=== PATIENT | female | born 1975 | race Caucasian/White ===

== ENCOUNTER → 2018-02-03 | Outpatient (CLI) | payer BC ==
--- NOTE | 2018-02-04 08:44 | MM ---
Reason for exam: clinical finding. Last mammogram was performed 2 years and 8 months ago. History: Patient had first child at age 33. Indicated problem(s): palpable abnormality in the right breast. Physical Findings: Nurse did not find any significant physical abnormalities on exam. MG Diagnostic Mammo w CAD ALVA Bilateral CC and MLO view(s) were taken. Prior study comparison: May 23, 2015, right breast MG diagnostic mammo RT w CAD. September 05, 2014, bilateral MG screening mammo w CAD. The breast tissue is heterogeneously dense. This may lower the sensitivity of mammography. Asymmetric breast tissue right axilla, stable. There is no discrete abnormality. ASSESSMENT: Incomplete: need additional imaging evaluation, BI-RAD 0 RECOMMENDATION: Ultrasound of the right breast. (axilla palpables/fullness)
--- NOTE | 2018-02-04 08:49 | USB ---
Reason for exam: additional evaluation requested from abnormal screening. History: Patient had first child at age 33. US Breast Limited RT Right breast ultrasound demonstrates no cystic or solid lesion seen. These results were verbally communicated with the patient and result sheet given to the patient on 02/03/18. ASSESSMENT: Negative, BI-RAD 1 RECOMMENDATION: Routine screening mammogram of both breasts in 1 year. Manage on a clinical basis with regard to right axillary fullness.
== END | disposition home or self-care (01) ==
LOC: RADMAMWWP 14:19
PROVIDERS: ATTEND Family Medicine
DX: N63.11 Unspecified lump in the right breast, upper outer quadrant (principal); R22.2 Localized swelling, mass and lump, trunk
CPT/HCPCS: 77066

== ENCOUNTER → 2019-04-17 | Outpatient (CLI) | payer BC ==
--- NOTE | 2019-04-17 11:25 | XR ---
EXAMINATION TYPE: XR shoulder complete RT DATE OF EXAM: 04/17/2019 CLINICAL HISTORY: Right superior shoulder pain for 3 weeks with no known injury TECHNIQUE: Three views of the right shoulder are obtained. COMPARISON: None. FINDINGS: There is no acute fracture/dislocation evident in the right shoulder. The acromioclavicul ar and glenohumeral joint spaces are maintained however there are small marginal osteophytes of the a cromioclavicular joint. The visualized ribs are intact and unremarkable. IMPRESSION: There is no acute fracture or dislocation in the right shoulder. Minimal acromioclavicul ar arthropathy.
== END | disposition home or self-care (01) ==
LOC: RADXRYALE 09:52
PROVIDERS: ATTEND Physician Assistant Medical
DX: M19.011 Primary osteoarthritis, right shoulder (principal)

== ENCOUNTER → 2019-09-15 | Outpatient (CLI) | payer BC ==
--- NOTE | 2019-09-15 11:57 | XR ---
EXAMINATION TYPE: XR chest 2V DATE OF EXAM: 09/15/2019 COMPARISON: NONE HISTORY: Chest pain TECHNIQUE: Frontal and lateral views of the chest are obtained. FINDINGS: There is no focal air space opacity. No evidence for pneumothorax. No pleural effusion. The cardiac silhouette size is within normal limits. The osseous structures are grossly intact. IMPRESSION: 1. No acute cardiopulmonary process.
== END | disposition home or self-care (01) ==
LOC: RADXRYALE 11:01
PROVIDERS: ATTEND Family Medicine
DX: R06.02 Shortness of breath (principal); R07.89 Other chest pain
CPT/HCPCS: 71046

== ENCOUNTER → 2019-10-13 | Outpatient (CLI) | payer BC ==
--- NOTE | 2019-10-13 12:00 | ECHOF ---
Referral Reason:[id number] chest pain MEASUREMENTS -------- HEIGHT: 165.1 cm WEIGHT: 89.8 kg BP: RVIDd: 2.9 cm (< 3.3) IVSd: 1.1 cm (0.6 - 1.1) LVIDd: 4.1 cm (3.9 - 5.3) LVPWd: 1.0 cm (0.6 - 1.1) IVSs: 1.5 cm LVIDs: 2.7 cm LVPWs: 1.5 cm LA Diam: 2.8 cm (2.7 - 3.8) LAESV Index (A-L): 20.93 ml/m Ao Diam: 3.0 cm (2.0 - 3.7) AV Cusp: 2.2 cm (1.5 - 2.6) MV EXCURSION: 18.894 mm (> 18.000) MV EF SLOPE: 105 mm/s (70 - 150) EPSS: 0.4 cm MV E [place]: 0.76 m/s MV DecT: 155 ms MV A [place]: 0.49 m/s MV E/A Ratio: 1.55 TAPSE: 21.08 mm FINDINGS -------- Sinus rhythm. This was a technically adequate study. The left ventricular size is normal. There is borderline concentric left ventricular hypertrophy. Overall left ventricular systolic function is normal with, an EF between 60 - 65 %. The right ventricle is normal in size. Normal LA size by volume 22+/-6 ml/m2. The right atrium is normal in size. Interatrial and interventricular septum intact. The aortic valve is trileaflet and appears structurally normal. The mitral valve is normal. The tricuspid valve appears structurally normal. Trace/mild (physiologic) pulmonic regurgitation. The aortic root size is normal. Normal inferior vena cava with normal inspiratory collapse consistent with estimated right atrial pre ssure of 5 mmHg. There is no pericardial effusion. CONCLUSIONS -------- 1. Sinus rhythm. 2. This was a technically adequate study. 3. The left ventricular size is normal. 4. There is borderline concentric left ventricular hypertrophy. 5. Overall left ventricular systolic function is normal with, an EF between 60 - 65 %. 6. The right ventricle is normal in size. 7. Normal LA size by volume 22+/-6 ml/m2. 8. The right atrium is normal in size. 9. Interatrial and interventricular septum intact. 10. The aortic valve is trileaflet and appears structurally normal. 11. The mitral valve is normal. 12. The tricuspid valve appears structurally normal. 13. Trace/mild (physiologic) pulmonic regurgitation. 14. The aortic root size is normal. 15. Normal inferior vena cava with normal inspiratory collapse consistent with estimated right atrial pressure of 5 mmHg. 16. There is no pericardial effusion. [employer]: Katelynn Thomas RDCS
--- NOTE | 2019-10-13 13:30 | EST ---
EXERCISE STRESS DATE OF SERVICE: 10/13/2019 AGE: 44 SEX: Female HT: 5'5-/2" WT: 198 pounds PROTOCOL: Lasha STAGE: III DURATION OF EXERCISE: 9 minutes HEART RATE REST: 73 BLOOD PRESSURE REST: 129/82 MAXIMUM HEART RATE ACHIEVED: 165 MAXIMUM BLOOD PRESSURE: 198/90 85% MPHR: 148 100% MPHR: 174 METS: 11.7 INDICATIONS: Chest pain. CLINICAL INFORMATION: Heart rate 73, pressure is 129/82 mmHg. Baseline EKG showed sinus rhythm. The patient exercised on the treadmill according to Lasha protocol for a total of 9 minutes and achieved 11.7 METs. Max heart rate was 198/90 mmHg. Clinically the patient did not have no symptoms of chest pain or chest discomfort. The EKG did not show any significant ST or T-wave abnormalities concerning for ischemia. CONCLUSION: 1. Excellent exercise tolerance. 2. Normal EKG in response to exercise. 3. Essentially normal exercise treadmill stress test for the patient. MMODL / IJN: [id number] /
== END | disposition home or self-care (01) ==
LOC: RADNMMAIN 08:34
PROVIDERS: ATTEND Family Medicine
DX: I37.1 Nonrheumatic pulmonary valve insufficiency (principal); I51.7 Cardiomegaly
CPT/HCPCS: 93017; 93306

== ENCOUNTER → 2019-12-28 | Outpatient (CLI) | payer BC ==
[2019-12-28 09:34] LABS: Basophils % (A) 1 %; Eosinophils # (A) 0.5 k/uL (0-0.7); Eosinophils % (A) 8 %; HCT 38.4 % (34.0-46.0); HGB 12.3 gm/dL (11.4-16.0); Lymphocytes # (A) 1.7 k/uL (1.0-4.8); Lymphocytes % (A) 30 %; MCH 28.1 pg (25.0-35.0); MCHC 32.1 g/dL (31.0-37.0); MCV 87.6 fL (80.0-100.0); Monocytes # (A) 0.3 k/uL (0-1.0); Monocytes % (A) 5 %; Neutrophils # (A) 2.9 k/uL (1.3-7.7); Neutrophils % (A) 53 %; Platelet Count 312 k/uL (150-450); RBC 4.39 m/uL (3.80-5.40); RDW 14.9 % (11.5-15.5); WBC 5.5 k/uL (3.8-10.6)
== END | disposition home or self-care (01) ==
LOC: LABWHC1 08:24
PROVIDERS: ATTEND Obstetrics & Gynecology
DX: Z01.812 Encounter for preprocedural laboratory examination (principal); D64.9 Anemia, unspecified; N93.8 Other specified abnormal uterine and vaginal bleeding
CPT/HCPCS: 36415; 85025

== ENCOUNTER 2020-01-02 07:58 | Day surgery (SDC) | payer BC ==
[2019-12-28 16:13] VITALS: BMI 32.4
[~2020-01-02 07:58] MED LIST: DEXAMETHASONE SOD PHOSPHATE 10 MG/ML 1 ML VIAL IV ONE; HYDROmorphone 0.5 MG/0.5 ML SYRINGE IVP PRN; LACTATED RINGERS 1,000 ML IV SCH; LIDOCAINE 1% (10MG/ML) FOR IV START INTRADERMA PRN; MIDAZOLAM 2 MG/2 ML VIAL IV PRN; ONDANSETRON 4 MG/2 ML VIAL IVP ONE; Pre Op ABX Message 1 EACH MISC MISCELLANE ONE; fentaNYL (PF) 50 MCG/ML 2 ML AMP IV PRN
[2020-01-02 08:20] VITALS: TEMP 97.3
[2020-01-02] MEDS ORDERED: fentaNYL (PF) 50 MCG/ML 2 ML AMP ONE (09:13)
[2020-01-02] MEDS ORDERED: LIDOCAINE 1% INJ 10MG/ML (20 ML MDV) ONE (09:13)
[2020-01-02] MEDS ORDERED: KETOROLAC 30 MG/ML 1 ML VIAL ONE (09:13)
[2020-01-02] MEDS ORDERED: PROPOFOL 10 MG/ML 20 ML VIAL IV ONE (09:13)
[2020-01-02] MEDS ORDERED: MIDAZOLAM 2 MG/2 ML VIAL ONE (09:13)
[2020-01-02] MEDS ORDERED: GLYCOPYRROLATE 0.2 MG/ML 2 ML VIAL ONE (09:13)
[2020-01-02] MEDS ORDERED: SIMETHICONE 80 MG CHEWABLE PO PRN (09:50)
[2020-01-02] MEDS ORDERED: KETOROLAC 30 MG/ML 1 ML VIAL IVP PRN (09:50)
[2020-01-02] MEDS ORDERED: diphenhydrAMINE 50 MG/ML 1 ML VIAL IVP PRN (09:50)
[2020-01-02] MEDS ORDERED: IBUPROFEN 600 MG TAB PO PRN (09:50)
[2020-01-02] MEDS ORDERED: METOCLOPRAMIDE 5 MG/ML 2 ML VIAL IVP PRN (09:50)
[2020-01-02] MEDS ORDERED: ONDANSETRON 4 MG/2 ML VIAL IVP PRN (09:50)
--- NOTE | 2020-01-02 09:58 | P.OP ---
Date of Procedure: 01/02/20 Preoperative Diagnosis: #1. Dysfunctional uterine bleeding #2. Menorrhagia #3. Anemia Postoperative Diagnosis: Same Procedure(s) Performed: #1. Diagnostic hysteroscopy #2. NovaSure endometrial ablation Anesthesia: other (Gen. by LMA) Surgeon: Rosas De Anda Estimated Blood Loss (ml): 5 IV fluids (ml): 400 Urine output (ml): 20 Pathology: none sent Condition: stable Disposition: PACU Operative Findings: Preoperative pelvic examination demonstrated a 5 week midplane mobile normal shaped uterus with normal adnexa bilaterally. Intraoperatively, the uterus sounded to 9 cm while the cervix was approximately 3-1/2 cm in length. The hysteroscope was able to identify both tubal ostial regions. There was some mildly shaggy endometrium in the upper portion of the fundus. The settings for the NovaSure tool where a length of 5.5 cm, a width of 4.8 cm for total power 148 W. After total run time of 65 seconds, the base unit read "procedure complete." 1 NovaSure tool was used and set aside as it could not pass the cavity check which was passed very simply using a second tool. The postprocedural result appeared to be excellent. The patient is a poor candidate for vaginal hysterectomy. Description of Procedure: The patient was prepped and draped in usual fashion after general anesthesia was administered by the anesthesiologist. A weighted speculum was placed and the bladder draining approximately 20 mL of clear rosi urine. The anterior lip of the cervix was grasped with a single-tooth tenaculum and the cervix and uterus sounded to 3.5 cm and 9 cm respectively. Serial dilation was carried out to admit the diagnostic hysteroscope which was placed into the antral cavity and hysteroscopy carried out with the findings as noted above. There was some shaggy endometrium in the fundal region of the uterus and the bilateral tubal ostial regions were seen. There was no other apparent pathology. The scope was set aside and the NovaSure tool placed to the fundus of the uterus, opened, and seated well. The settings for the tool were as noted above, a length of 5.5 cm, a width of 4.8 cm for total power of 145 seconds. Initial attempts to pass the cavity check were unsuccessful and the first 2 was replaced the second 2 with the settings as noted above. The cavity check was then passed without difficulty. The tool was armed and the run was started. After 65 seconds of run time, the base unit disengaged and red "procedure complete." The tool was closed, removed, and discarded. The diagnostic scope was replaced within the uterine cavity and the findings appear to be excellent as noted above. All instrumentation was then removed from the patient. There was no ongoing bleeding either from the cervix or from the tenaculum sites. Estimated blood loss for the entire case was approximate 5 mL. There were no complications. All sponge, instrument, and needle counts were correct. The patient tolerated the procedure well and proceeded to the recovery room in stable condition.
[2020-01-02] MEDS ORDERED: LACTATED RINGERS 1,000 ML IV SCH (10:00)
[2020-01-02 10:59] VITALS: RESP 16
[2020-01-02 11:22] VITALS: BP 123/82; PULSE 62
== END 2020-01-02 11:37 | disposition home or self-care (01) ==
LOC: OR 07:58
PROVIDERS: ATTEND Obstetrics & Gynecology
DX: N92.0 Excessive and frequent menstruation with regular cycle (principal); N93.8 Other specified abnormal uterine and vaginal bleeding; D64.9 Anemia, unspecified; E03.9 Hypothyroidism, unspecified; Z88.5 Allergy status to narcotic agent; Z79.890 Hormone replacement therapy; Z90.49 Acquired absence of other specified parts of digestive tract; Z98.51 Tubal ligation status; Z98.890 Other specified postprocedural states; Z80.1 Family history of malignant neoplasm of trachea, bronchus and lung; Z80.8 Family history of malignant neoplasm of other organs or systems
CPT/HCPCS: 81025; 58563; J2250; J1100; J2405; J2001; J3010; J1885; J2704

== ENCOUNTER → 2022-05-19 | Outpatient (CLI) | payer BC ==
[2022-05-19 13:30] VITALS: BP 116/82; PULSE 57; RESP 17; TEMP 98.2
--- NOTE | 2022-05-19 14:31 | P.HPOB ---
History of Present Illness H&P Date: 05/19/22 Chief Complaint: The patient is here for her routine gynecologic exam. This is a 46-year-old with an LMP of 2019. The patient is here to establish with this office. It has been about 2 years since her last pelvic exam. She has been amenorrheic since her endometrial ablation done in 2019. The ablation was for dysfunctional uterine bleeding. She denies any significant hot flashes, but has noticed some mood changes. She is without gynecologic complaints. She is status post tubal ligation. Review of Systems She has gained about 20 pounds over the past 2 years and she attributes this to the Covid pandemic. She denies respiratory, cardiac, or GI problems. Past Medical History Past Medical History: No Reported History, Thyroid Disorder Additional Past Medical History / Comment(s): Hypothyroidism. 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 History of incompetent cervix with several second trimester miscarriages. History of Any Multi-Drug Resistant Organisms: None Reported Additional Past Surgical History / Comment(s): prateek breast reduction 2018. Cervical cerclage 2007. D&C for retained placenta. Past Anesthesia/Blood Transfusion Reactions: No Reported Reaction Past Psychological History: No Psychological Hx Reported (She denies current depression.) Smoking Status: Former smoker Past Alcohol Use History: Occasional (0-3 per month) Additional Past Alcohol Use History / Comment(s): Quit smoking cigarettes in her 20s. Past Drug Use History: None Reported Additional History: She has been since 2002. 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 - Past Family History Brother(s) Family Medical History: Cancer Additional Family Medical History / Comment(s): thyroid cancer Father Family Medical History: Cancer Additional Family Medical History / Comment(s): of multiple myeloma. Paternal grandmother and paternal uncle had lung cancer. Mother Family Medical History: Thyroid Disorder Additional Family Medical History / Comment(s): Hypothyroidism. Maternal grandfather had hemochromatosis. Medications and Allergies Home Medications Medication Instructions Recorded Confirmed Type Levothyroxine Sodium [Synthroid] 100 mcg PO DAILY 02/11/18 05/19/22 History Allergies Allergy/AdvReac Type Severity Reaction Status Date / Time hydromorphone [From Dilaudid] Allergy Swelling Verified 05/19/22 13:27 talc Allergy Swelling Verified 05/19/22 13:27 telk powder Allergy Swelling Uncoded 05/19/22 13:27 Exam Vital Signs Temp Pulse Resp BP Pulse Ox 05/19/22 13:27 98.2 F 57 L 17 116/82 97 Intake and Output 05/18/22 05/19/22 05/19/22 22:59 06:59 14:59 Other: Weight 91.626 kg Height 5 feet 5 inches, weight 202 pounds, BMI 33.6. This is a well-developed well-nourished white female who is alert and oriented times 3 in no acute distress. HEENT: Within normal limits. NECK: Supple without mass or thyromegaly. CHEST AND LUNGS: Clear to auscultation. HEART: Regular rate and rhythm. BREASTS: Are without mass or discharge. AXILLARY EXAM: Negative for adenopathy. BACK: Negative for CVA tenderness. ABDOMEN: Soft, nontender, without palpable masses. PELVIC EXAM: Normal external genitalia. Cervix and vagina appear normal. There is no unusual discharge. There is no evidence of prolapse. The uterus is midposition, nongravid size and nontender. There are no palpable adnexal masses or tenderness. RECTAL EXAM: negative for mass or tenderness and is negative for occult blood. EXTREMITIES: Nontender. IMPRESSION: 1. 46-year-old female who is status post tubal ligation, with amenorrhea following her endometrial ablation in 2019. 2. Normal gynecologic exam. PLAN: 1. Pap smear cotest was performed. 2. Self breast awareness was discussed with the patient. We have also discussed symptoms associated with inflammatory breast cancer. 3. Screening mammogram is due and the order slip was given to the patient for this. 4. Osteoporosis prevention was discussed. I have stressed the importance of adequate calcium, vitamin D and regular exercise. Recommended amounts of calcium and vitamin D were also discussed. 5. I have recommended that she look into getting a Covid vaccination since she has not had one. She will consider this. 6. She was advised to return in one year for her annual well woman exam.
== END ==
LOC: WWCWWP 13:06
PROVIDERS: ATTEND Obstetrics & Gynecology
DX: Z01.419 Encounter for gynecological examination (general) (routine) without abnormal findings (principal); E03.9 Hypothyroidism, unspecified; Z79.890 Hormone replacement therapy; Z87.891 Personal history of nicotine dependence; Z98.51 Tubal ligation status; Z88.5 Allergy status to narcotic agent; Z91.048 Other nonmedicinal substance allergy status

== ENCOUNTER → 2022-06-16 | Outpatient (CLI) | payer BC ==
[2022-06-16 08:11] VITALS: BP 122/82; PULSE 60; RESP 17; TEMP 97.8
--- NOTE | 2022-06-16 09:02 | P.PN ---
Progress Note - Text Progress Note Date: 06/16/22 Chief Complaint: Heavy vaginal bleeding for 2 days starting on 06/13/2022. HPI: This is a 46-year-old with an LNMP of 2019. The patient is status post endometrial ablation in 2019 for her hypermenorrhea. She had been amenorrheic following the ablation until a few days ago. On 06/12/2022, she developed a right pelvic pain which felt like a terrible cramp. The cramping pain was fairly constant. The following day she developed heavier vaginal bleeding and she noticed this when she was going to the bathroom. It was not continuously heavy, but mostly noticed when she went to the bathroom. She states it was menstrual period like bleeding at those times. Yesterday, the pain and the bleeding decreased. Today the bleeding has been minimal and she is not experiencing any pain. She is status post tubal ligation. ROS: She denies respiratory, cardiac, or GI problems. PE: Blood pressure: 122/82, Height: 5 feet 5 inches, Weight: 203 pounds, Temperature: 97.8, Pulse: 60. Pulse oximeter 100%. This is a well developed, well nourished, white female who is alert and orientedx3, in no acute distress. Abdomen: Soft, nontender, without palpable masses. Pelvic exam: There is a small amount of menstrual type blood in the vagina. The cervix appears multiparous and normal. There is no cervical motion tenderness. The uterus is mid position, multiparous, nongravid size, and nontender. There are no palpable adnexal masses or tenderness. See the procedure note for details on the endometrial biopsy. Impression: 1. 46-year-old female who is status post tubal ligation, with abnormal uterine bleeding following 2 years of amenorrhea after her endometrial ablation in 2019. 2. Right pelvic pain which seemed to be associated with the heavy vaginal bleeding. Differential diagnosis will include ruptured ovarian cyst, hemorrhagic ovarian cyst, or uterine cramping. Plan: 1. Endometrial biopsy was performed. We will await the pathology report. If this is benign and she continues to not have more bleeding or pain, conservative management. If cancerous or precancerous changes are found on the endometrial biopsy, or if she is having recurrent symptoms, consider referral for further evaluation and possible hysterectomy. If endometrial hyperplasia without atypia or benign recurrent bleeding, consider cyclic progestin therapy. 2. The patient was instructed to call she's has any questions or problems. Time spent with the patient: 30 minutes
--- NOTE | 2022-06-16 09:07 | P.PCN ---
Date of Procedure: 06/16/22 Preoperative Diagnosis: Abnormal uterine bleeding Postoperative Diagnosis: Abnormal uterine bleeding Procedure(s) Performed: Endometrial biopsy Anesthesia: none Surgeon: Tyler Canela Estimated Blood Loss (ml): 0 Pathology: other (Endometrial tissue) Condition: stable Disposition: same day Indications for Procedure: This was a 46-year-old female who is status post tubal ligation and endometrial ablation, who was amenorrheic since her endometrial ablation in 2019. The patient developed right pelvic cramping and heavy vaginal bleeding for 2 days. The bleeding started on 06/13/2022. Operative Findings: The uterus was multiparous in size and there are no palpable adnexal masses or tenderness. The uterus sounded to 8 cm. Description of Procedure: We have discussed the procedure including possible risks and complications including bleeding, infection, uterine perforation, and damage to surrounding structures. All of her questions were answered. Please see the progress note from today for additional details. The patient was placed in the lithotomy position. Bimanual examination was performed. The uterus is multiparous, nongravid size and nontender. There are no palpable adnexal masses or tenderness. The speculum was inserted into the vagina. The cervix and vagina were prepped with Betadine solution. An Allis clamp was used to to grasp the anterior lip of the cervix. A 3 mm endometrial biopsy instrument was inserted to the fundus without difficulty. Uterus sounded to 8 cm. Negative pressure was applied and a [id number] rotating motion was used. A moderate amount of tissue was obtained and sent for pathological examination. The instruments were removed. The patient tolerated the procedure well. There were no complications. The post procedure blood pressure was 153/87. The patient was instructed to call if she has problems including heavy vaginal bleeding, unusual pain, fever, or problems.
--- NOTE | 2022-06-18 14:40 | MM ---
Reason for Exam: Screening (asymptomatic). Last mammogram was performed 1 year(s) and 8 month(s) ago. Patient History: Menarche at age 11. First Full-Term at age 33. Late child-bearing (after 30). Risk Values: Celina 5 year model risk: 1.3%. NCI Lifetime model risk: 12.5%. Prior Study Comparison: 09/05/2014 Bilateral Screening Mammogram, [facility]. 05/23/2015 Right Diagnostic Mammogram, [facility]. 02/03/2018 Bilateral Diagnostic Mammogram, [facility]. 10/03/2020 Bilateral MG 3D screening mammo w/cad, [facility]. Tissue Density: There are scattered fibroglandular densities. Findings: Analyzed By CAD. There is no suspicious group of microcalcifications or new suspicious mass in either breast. Overall Assessment: Negative, BI-RAD 1 Management: Screening Mammogram of both breasts in 1 year. A clinical breast exam by your physician is recommended on an annual basis and results should be correlated with mammographic findings. Electronically signed and approved by: Lefty Garcia M.D.
--- NOTE | 2022-06-23 12:57 | P.PN ---
Progress Note - Text Progress Note Date: 06/23/22 OUTPATIENT FOLLOW-UP NOTE TEST(S)/RESULTS: Test results from 06/16/2022 include endometrial biopsy pathology revealing benign proliferative endometrium. METHOD OF NOTIFICATION: The patient was notified by phone. PATIENT COMMENTS: She has had a small amount of spotting and cramping after the procedure, but this has not been problem. DIAGNOSIS: Post-endometrial ablation amenorrhea with recent vaginal bleeding. Benign endometrial biopsy. 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 PLAN: She will keep a menstrual calendar and call if she is having menstrual problems including frequent vaginal bleeding, prolonged vaginal bleeding, or very heavy vaginal bleeding.
== END ==
LOC: WWCWWP 08:03
PROVIDERS: ATTEND Obstetrics & Gynecology
DX: Z12.31 Encounter for screening mammogram for malignant neoplasm of breast (principal); N93.9 Abnormal uterine and vaginal bleeding, unspecified; R10.2 Pelvic and perineal pain; Z98.51 Tubal ligation status; Z88.5 Allergy status to narcotic agent; Z91.09 Other allergy status, other than to drugs and biological substances
CPT/HCPCS: 77063; 77067; 88305

== ENCOUNTER → 2025-04-12 | Outpatient (CLI) | payer BC ==
--- NOTE | 2025-04-12 16:05 | MM ---
Reason for Exam: Screening (asymptomatic). Last mammogram was performed 2 year(s) and 10 month(s) ago. Patient History: Menarche at age 11. First Full-Term at age 33. Late child-bearing (after 30). Last menstrual period: 03/26/2025 Risk Values: Celina 5 year model risk: 1.4%. NCI Lifetime model risk: 12.0%. Prior Study Comparison: 02/03/2018 Bilateral Diagnostic Mammogram, [facility]. 10/03/2020 Bilateral MG 3D screening mammo w/cad, [facility]. 06/16/2022 Bilateral MG 3D screening mammo w/cad, [facility]. Tissue Density: There are scattered areas of fibroglandular density. Findings: Analyzed By CAD. A few scattered benign round calcifications are now noted on the right. Asymmetric density far posterior outer aspect left cc view is unchanged. There is no suspicious group of microcalcifications or new suspicious mass in either breast. Overall Assessment: Benign, BI-RAD 2 Management: Screening Mammogram of both breasts in 1 year. Patient should continue monthly self-breast exams. A clinical breast exam by your physician is recommended on an annual basis. This exam should not preclude additional follow-up of suspicious palpable abnormalities. Note on Celina scores and lifetime risk: 1. A Celina score greater than 3% is considered moderate risk. If this is the case, consider specialist referral to assess eligibility for a risk reducing agent. 2. If overall lifetime risk for the development of breast cancer is 20% or higher, the patient may qualify for future screening with alternating mammogram and breast MRI. [facility], , 04/12/2025 4:02 PM. Electronically signed and approved by: Melissa Peterson M.D. Radiologist
== END | disposition home or self-care (01) ==
LOC: RADMAMWWP 14:59
PROVIDERS: ATTEND Obstetrics & Gynecology
DX: Z12.31 Encounter for screening mammogram for malignant neoplasm of breast (principal); R92.323 Mammographic fibroglandular density, bilateral breasts; R92.1 Mammographic calcification found on diagnostic imaging of breast
CPT/HCPCS: 77063; 77067